=== PATIENT | male | born 1955 | race Two or more races ===

== ENCOUNTER 2020-07-04 14:27 | Emergency (ER) | payer BC, MEDICARE ==
[~2020-07-04] VITALS: Ht 167.6 cm; Wt 64.8 kg
[2020-07-04 15:30] LABS: MEAN CORPUSCULAR HEMOGLOBIN 27.6 pg (27.5-34.5); MEAN CORPUSCULAR HGB CONC 32.4 g/dL (33.2-36.2); MEAN PLATELET VOLUME 7.5 fL (7.4-10.4); RED BLOOD COUNT 3.98 x10^6/uL (4.38-5.82); RED CELL DISTRIBUTION WIDTH 14.2 % (9.4-14.8)
[2020-07-04 15:37] LABS: ALANINE AMINOTRANSFERASE 17 U/L (12-78); ALBUMIN 2.4 g/dL (3.4-5.0); ANION GAP 8 mmol/L (5-15); CALCIUM 8.4 mg/dL (8.5-10.1); CHLORIDE 110 mmol/L (98-107); CREATININE 0.85 mg/dL (0.7-1.3)
[2020-07-04 15:39] LABS: ALKALINE PHOSPHATASE 60 U/L (45-117); BILIRUBIN,TOTAL 0.3 mg/dL (0.2-1.0); TOTAL PROTEIN 6.7 g/dL (6.4-8.2)
--- NOTE | 2020-07-04 15:42 | NUR ---
PT AMBULATORY TO ROOM 23 W/ C/O BEING CALLED BY PT'S FOR CRITICAL PLATELETS AT 13. PT DENIES ANY SX. 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 PT RESTING ON BASHIR. S. MONITORS IN PLACE.
[2020-07-04 16:02] LABS: PLATELET COUNT 18 x10^3/uL (130-400)
[2020-07-04 16:03] LABS: MD YES
[2020-07-04] MEDS ORDERED: hydrOXYzine 50 MG/ML IM STA (16:35)
--- NOTE | 2020-07-04 16:54 | NUR ---
BLOOD CONSENT FOR PLATELETS SIGNED BY PT, THIS RN, AND ERP DR. LEE.
[2020-07-04 16:58] LABS: BAND#(MANUAL) 0.12 x10^3/uL; BANDS%(MANUAL) 4 % (0-7); LYMPH#(MANUAL) 0.43 x10^3/uL (1-3.4); LYMPHS% (MANUAL) 14 % (22-44); METAMYELOCYTES# (MANUAL) 0.06 x10^3/uL (0-0); METAMYELOCYTES% (MANUAL) 2 % (0-1); MONOS#(MANUAL) 0.09 x10^3/uL (0.3-2.7); MONOS% (MANUAL) 3 % (2-9); SEG#(MANUAL) 2.39 x10^3/uL (1.8-6.8); SEGS% (MANUAL) 77 % (42-75)
[2020-07-04 16:59] LABS: <PLATELET ESTIMATE> DECREASED; ANISOCYTOSIS 1+
[2020-07-04 17:00] LABS: <PLT MORPHOLOGY> QNS FOR PLT MORPH
--- NOTE | 2020-07-04 17:01 | NUR ---
PT RESTING ON GURNEY. NADN. FRANCO.
--- NOTE | 2020-07-04 17:11 | NUR ---
BREAK RN: REPORT OF PICC LINE PLACEMENT VIEWED PRIOR TO ACCESSING PT'S R ARM PICC LINE.
--- NOTE | 2020-07-04 17:30 | NUR ---
REPORT RECEIVED FROM JENSEN RICE.
--- NOTE | 2020-07-04 17:31 | NUR ---
REPORT GIVEN TO JENSEN CARRENO.
[2020-07-04 18:03] VITALS: BP 113/59
[2020-07-04 18:18] VITALS: BP 123/64
[2020-07-04 18:33] VITALS: BP 127/67
--- NOTE | 2020-07-04 18:55 | NUR ---
report of pt from talita castellanos and assuming care of pt at this time.
[2020-07-04 19:35] VITALS: BP 119/59
--- NOTE | 2020-07-04 19:37 | NUR ---
pt transfusion complete at this time, with all platelets in bag and tubing infused. pt vss and updated in emr at this time. pt denies any other needs and has call light within reach at this time.
--- NOTE | 2020-07-04 20:36 | NUR ---
pt d/c with d/c summary and f/u instructions. pt educated on scripts and verbalizes understanding of use. pt declines any other needs pertaining to this visit and ambulates to registration desk with steady gait for d/c home.
[2020-07-04 20:44] VITALS: BP 115/59
== END 2020-07-04 20:47 | disposition home or self-care (01) ==
LOC: ED 17:30
DX: D69.6 Thrombocytopenia, unspecified (principal); D72.819 Decreased white blood cell count, unspecified; C34.90 Malignant neoplasm of unspecified part of unspecified bronchus or lung; Z51.11 Encounter for antineoplastic chemotherapy; R21 Rash and other nonspecific skin eruption
CPT/HCPCS: 36415; 36430; 80053; 85025; 86850; 86900; 96372; 99285; J3410; J7512; P9035

== ENCOUNTER 2020-07-08 12:45 | Emergency (ER) | payer BC, MEDICARE ==
[~2020-07-08] VITALS: Ht 167.6 cm; Wt 62.1 kg
--- NOTE | 2020-07-08 13:01 | NUR ---
PETROLEUM SAMPLER: PT REPORTS LAB WORK DONE OUTPATIENT TODAY. LAB RESULT FOUND IN EMR FOR CRITICAL PLATELET LEVEL OF 18. Addendum: 07/08/20 at 1400 by CBRUCIAGA PETROLEUM SAMPLER: PT REPORTS LAB WORK DONE OUTPATIENT TODAY. LAB RESULT FOUND IN EMR FOR CRITICAL PLATELET LEVEL OF 31.
--- NOTE | 2020-07-08 13:10 | NUR ---
PT HERE FOR C/O RIGHT UPPER ARM PAIN AND SWELLING X2 DAYS AT PICC LINE SITE.
--- NOTE | 2020-07-08 13:12 | NUR ---
PT REPORTS HE IS GETTING CHEMO, LAST CHEMO ON FRIDAY, HAS ONE MORE CHEMO SCHEDULED FOR FRIDAY. ERMD AT BEDSIDE FOR EVAL.
--- NOTE | 2020-07-08 14:36 | NUR ---
ERMD AT BEDSIDE.
[2020-07-08] MEDS ORDERED: RIVAROXABAN 10 MG TABLET ONE (14:49)
[2020-07-08] MEDS ORDERED: RIVAROXABAN 15 MG TABLET PO ONE (15:00)
[2020-07-08 15:04] VITALS: BP 159/72
== END 2020-07-08 15:08 | disposition home or self-care (01) ==
LOC: ED 13:27
DX: I82.A11 Acute embolism and thrombosis of right axillary vein (principal); I82.B11 Acute embolism and thrombosis of right subclavian vein; Z85.118 Personal history of other malignant neoplasm of bronchus and lung
CPT/HCPCS: 99284

== ENCOUNTER → 2020-07-08 | Outpatient (CLI) | payer BC, MEDICARE ==
[2020-07-08 12:43] LABS: BASOPHILS % (AUTO) 0 % (0-1); EOSINOPHILS % (AUTO) 5 % (1-7); LYMPHOCYTES % (AUTO) 40 % (22-44); MEAN CORPUSCULAR HEMOGLOBIN 27.6 pg (27.5-34.5); MEAN CORPUSCULAR HGB CONC 32.7 g/dL (33.2-36.2); MEAN PLATELET VOLUME 8.8 fL (7.4-10.4); MONOCYTES % (AUTO) 2 % (2-9); NEUTROPHILS % (AUTO) 54 % (42-75); RED BLOOD COUNT 4.52 x10^6/uL (4.38-5.82); RED CELL DISTRIBUTION WIDTH 14.3 % (9.4-14.8)
[2020-07-08 12:49] LABS: ALANINE AMINOTRANSFERASE 38 U/L (12-78); ALBUMIN 2.9 g/dL (3.4-5.0); ANION GAP 7 mmol/L (5-15); CALCIUM 8.9 mg/dL (8.5-10.1); CHLORIDE 103 mmol/L (98-107)
[2020-07-08 12:52] LABS: ALKALINE PHOSPHATASE 79 U/L (45-117); BILIRUBIN,TOTAL 0.6 mg/dL (0.2-1.0); TOTAL PROTEIN 7.2 g/dL (6.4-8.2)
[2020-07-08 13:36] LABS: MD SCAN
[2020-07-08 13:42] LABS: PLATELET COUNT 31 x10^3/uL (130-400)
== END | disposition home or self-care (01) ==
LOC: LAB 12:02
PROVIDERS: ATTEND Internal Medicine Hematology & Oncology
DX: Z51.11 Encounter for antineoplastic chemotherapy (principal); C45.9 Mesothelioma, unspecified
CPT/HCPCS: 36415; 80053; 85025